=== PATIENT | male | born 1965 | race Caucasian/White ===

== ENCOUNTER 2020-08-20 15:17 | Emergency (ER) | payer MEDICAID ==
[~2020-08-20] VITALS: Ht 188 cm; Wt 97.7 kg
[~2020-08-20 15:17] MED LIST: CEPH-585 PO; PERM60CR19 TP
[2020-08-20 15:30] VITALS: BP 130/85
== END 2020-08-20 15:49 | disposition home or self-care (01) ==
LOC: ER 15:22
DX: L20.9 Atopic dermatitis, unspecified (principal); Z88.8 Allergy status to other drugs, medicaments and biological substances; Z79.2 Long term (current) use of antibiotics; Z79.899 Other long term (current) drug therapy
CPT/HCPCS: 99282

== ENCOUNTER 2020-11-04 03:18 | Emergency (ER) | payer MEDICAID ==
[~2020-11-04] VITALS: Ht 190.5 cm; Wt 90.0 kg
[~2020-11-04 03:18] MED LIST changes: -PERM60CR19 TP
--- NOTE | 2020-11-04 03:24 | NUR ---
RPD PRESENT AT BEDSIDE
[2020-11-04 05:44] VITALS: BP 153/92
== END 2020-11-04 05:30 | disposition home or self-care (01) ==
LOC: ER 03:19
DX: S50.11XA Contusion of right forearm, initial encounter (principal); S40.811A Abrasion of right upper arm, initial encounter; M25.521 Pain in right elbow; Z88.8 Allergy status to other drugs, medicaments and biological substances; Z79.2 Long term (current) use of antibiotics; X58.XXXA Exposure to other specified factors, initial encounter; Y93.89 Activity, other specified; Y92.89 Other specified places as the place of occurrence of the external cause; Y99.8 Other external cause status
CPT/HCPCS: 73080; 99283